=== PATIENT | male | born 1965 | race Caucasian/White ===

== ENCOUNTER 2018-11-01 09:48 | Day surgery (SDC) | payer BC ==
[2018-10-31 12:57] VITALS: BMI 34.2
[2018-11-01] MEDS ORDERED: Oxymetazoline HCl 0.05% ( 15 ML ) ONE (10:06)
[2018-11-01] MEDS ORDERED: Lidocaine 1% w/Epinephrine 1:100K 20 ML VIAL ONE ×2 (10:53→12:15)
[2018-11-01] MEDS ORDERED: Fentanyl 100 MCG/2 ML VIAL ONE ×2 (12:21→13:30)
[2018-11-01] MEDS ORDERED: HYDROcodone/Acetaminophen 5/325 mg Tablet ONE ×2 (15:09→15:12)
[2018-11-01] MEDS ORDERED: Dexamethasone 20 MG/5 ML VIAL ONE (15:43)
[2018-11-01] MEDS ORDERED: PROPOFOL 200 MG/20 ML VIAL ONE (15:43)
[2018-11-01] MEDS ORDERED: ePHEDrine 50 MG/ML VIAL ONE (15:43)
[2018-11-01] MEDS ORDERED: Ondansetron PF 4 MG/2 ML Vial ONE (15:43)
[2018-11-01] MEDS ORDERED: Succinylcholine Chloride 20 MG/ML 10 ml SYRINGE FS ONE (15:43)
[2018-11-01] MEDS ORDERED: Lidocaine 1% PF 5 ML VIAL ONE (15:43)
[2018-11-01] MEDS ORDERED: Rocuronium Bromide 10 MG/ML (10ML VIAL) ONE (15:43)
--- NOTE | 2018-11-01 16:51 | EKG ---
Test Reason : PREOP Blood Pressure : / mmHG Vent. Rate : 046 BPM Atrial Rate : 046 BPM P-R Int : 144 ms QRS Dur : 114 ms QT Int : 438 ms P-R-T Axes : 037 -31 002 degrees QTc Int : 383 ms Marked sinus bradycardia Left axis deviation Incomplete right bundle branch block Nonspecific T wave abnormality Abnormal ECG No previous ECGs available Confirmed by DR. Norma BIRCH MD ([id number]) on 11/01/2018 4:50:56 PM Referred By: SHABBIR Confirmed By:DR. Norma BIRCH MD
--- NOTE | 2018-11-02 08:20 | OP ---
DATE OF PROCEDURE: 11/01/2018 PREOPERATIVE DIAGNOSES: 1. Chronic rhinosinusitis. 2. Nasal septal deviation. 3. Bilateral inferior turbinate hypertrophy. 4. Uvula hypertrophy. POSTOPERATIVE DIAGNOSES: 1. Chronic rhinosinusitis. 2. Nasal septal deviation. 3. Bilateral inferior turbinate hypertrophy. 4. Uvula hypertrophy. PROCEDURES PERFORMED: 1. Bilateral endoscopic sinus surgery, total ethmoidectomies. 2. Bilateral endoscopic sinus surgery maxillary antrostomies. 3. Bilateral endoscopic sinus surgery, frontal sinusotomies. 4. Bilateral endoscopic sinus surgery, sphenoidotomies. 5. Nasal septoplasty. 6. Bilateral inferior turbinate submucosal resection. 7. Uvulectomy. ESTIMATED BLOOD LOSS: 50 mL. COMPLICATIONS: None. ANESTHESIA: GETA. PROCEDURE IN DETAIL: Patient was taken to the operating room and placed supine on the table. General endotracheal anesthesia was obtained by the anesthesia staff. Tube was secured in the left lower lip. Patient was then placed in the beach chair position, and Afrin pledgets were placed in the nasal cavity. Injections of 1% lidocaine with 1:100,000 epinephrine were made into the nasal septum as well as the inferior turbinates. Patient was then prepped and draped in standard surgical fashion for nasal surgery. Following this, the Afrin pledgets were removed. A [place] incision was made on the left nasal septum. Submucoperichondrial dissection was performed. The deviated portions of the septum included portions of the cartilage and the bony septum. These isolated areas were removed using 3 cutting rongeurs. There was noted to be a large dorsal and caudal strut, left intact for support of the nose. The mucoperichondrial flaps were then reapproximated using a 4-0 gut stitch. Any straight pieces of cartilage were crushed prior to this and placed between the mucoperichondrial flaps. Following this, the inferior turbinates were then punctured with a submucosal coblation wand, and submucosal coblations were performed of multiple areas of the inferior portion of the anterior inferior turbinate. Please note that the submucosal microdebrider was used to submucosally resect the anterior and inferior portions of the inferior turbinates bilaterally. Following this, the inferior turbinates were gently outfractured with a [place] elevator. Following this, a 0-degree endoscope was advanced to the nasal cavity. 1% lidocaine with 1:100,000 epinephrine was injected into the middle turbinate and lateral nasal wall. Following this, the middle turbinates were gently medialized. There was a large right arley bullosa noted of the right middle turbinate. A vertical incision was made in this right middle turbinate and the lateral portion of this arley bullosa air cell was removed using the straight [place]akes[place] forceps and the microdebrider. Following this, the uncinate process was identified bilaterally and was anteriorly fractured using a ball-ended probe bilaterally. Following this, the uncinate was removed using the microdebrider and up-biting Blakesley forceps bilaterally. Following this, the natural maxillary sinus ostia was identified using a ball-ended probe and was gently widened using the curved microdebrider and straight Blakesley forceps bilaterally. Following this, the ethmoidal bulla was identified bilaterally and was punctured on its medial and inferior aspect with the microdebrider. Following this, the microdebrider was used to remove the ethmoidal bulla as well as opened the anterior ethmoidal cells. Following this, the grand lamella was identified and was punctured into the posterior ethmoidal cells bilaterally. Working from posterior to anterior, the ethmoidal cells were opened using a 0-degree microdebrider and a 40-degree microdebrider and the up-biting Blakesley forceps. Following this, the sphenoid sinuses were approached through the previous ethmoidectomies and the superior turbinate was identified as it was attached to the posterior nasal wall. Staying just medial and inferior to this attachment, sphenoid sinusotomies were made bilaterally with a Hernandez tip suction. Following this, the sphenoid sinus ostia was then widened medially and inferiorly with a 0-degree microdebrider. Following this, a 45-degree scope along with the curved microdebrider blade were used to further open the frontal recess cells and frontal sinus ostia bilaterally. Following this, nasal cavity was irrigated. Mirapex was placed within the middle meatus. [place] splints were placed and secured. Following this, the Leandra-Obi mouthgag was introduced and the oral cavity was retracted. The patient was noted to have markedly elongated uvula. The excessive portions of the uvula were measured and then trimmed with the Bovie electrocautery and a chromic gut stitch was placed to reapproximate the mucosal edges. The patient tolerated the procedure well. Job ID: [id number]
== END 2018-11-01 15:53 | disposition home or self-care (01) ==
LOC: SDC 09:48
PROVIDERS: ATTEND Otolaryngology Plastic Surgery within the Head & Neck
PROC: 099Q8ZZ Drainage of Right Maxillary Sinus, Via Natural or Artificial Opening Endoscopic (ICD-10-PCS; principal; 2018-11-01)
PROC: 099S8ZZ Drainage of Right Frontal Sinus, Via Natural or Artificial Opening Endoscopic (ICD-10-PCS; principal; 2018-11-01)
PROC: 09TU8ZZ Resection of Right Ethmoid Sinus, Via Natural or Artificial Opening Endoscopic (ICD-10-PCS; principal; 2018-11-01)
PROC: 09TL4ZZ Resection of Nasal Turbinate, Percutaneous Endoscopic Approach (ICD-10-PCS; principal; 2018-11-01)
PROC: 099W8ZZ Drainage of Right Sphenoid Sinus, Via Natural or Artificial Opening Endoscopic (ICD-10-PCS; principal; 2018-11-01)
PROC: 0CBNXZZ Excision of Uvula, External Approach (ICD-10-PCS; principal; 2018-11-01)
PROC: 099R8ZZ Drainage of Left Maxillary Sinus, Via Natural or Artificial Opening Endoscopic (ICD-10-PCS; principal; 2018-11-01)
PROC: 099T8ZZ Drainage of Left Frontal Sinus, Via Natural or Artificial Opening Endoscopic (ICD-10-PCS; principal; 2018-11-01)
PROC: 09TV8ZZ Resection of Left Ethmoid Sinus, Via Natural or Artificial Opening Endoscopic (ICD-10-PCS; principal; 2018-11-01)
PROC: 09SM0ZZ Reposition Nasal Septum, Open Approach (ICD-10-PCS; principal; 2018-11-01)
PROC: 099X8ZZ Drainage of Left Sphenoid Sinus, Via Natural or Artificial Opening Endoscopic (ICD-10-PCS; principal; 2018-11-01)
DX: J32.9 Chronic sinusitis, unspecified (principal); J34.2 Deviated nasal septum; J34.3 Hypertrophy of nasal turbinates; K13.79 Other lesions of oral mucosa; J34.89 Other specified disorders of nose and nasal sinuses; J34.1 Cyst and mucocele of nose and nasal sinus; H90.6 Mixed conductive and sensorineural hearing loss, bilateral; H69.80 Other specified disorders of Eustachian tube, unspecified ear; G47.33 Obstructive sleep apnea (adult) (pediatric); Z79.899 Other long term (current) drug therapy; Z88.0 Allergy status to penicillin; Z91.018 Allergy to other foods; Z88.8 Allergy status to other drugs, medicaments and biological substances
CPT/HCPCS: 93005; 93010; J0131; J1100; J2001; J2405; J2704; J3010; J3490